=== PATIENT | female | born 1950 | race Caucasian/White ===

== ENCOUNTER 2024-10-24 17:08 | Inpatient (IN) | payer MEDICARE ==
[~2024-10-24] VITALS: Ht 165.1 cm; Wt 63.8 kg
[2024-10-24 17:35] LABS: BASOPHILS % (AUTO) 0.5 % (0-1); EOSINOPHILS % (AUTO) 0.3 % (0-6); HEMATOCRIT 37.3 % (35.0-45.0); HEMOGLOBIN 12.7 g/dl (12.0-16.0); LYMPHOCYTES # (AUTO) 0.4 X10'3 (1.1-4.8); LYMPHOCYTES % (AUTO) 7.3 % (21-51); MEAN CORPUSCULAR HEMOGLOBIN 32.6 PG (27.0-31.0); MEAN CORPUSCULAR HGB CONC 34.1 g/dL (33.0-36.5); MEAN CORPUSCULAR VOLUME 95.4 FL (78-98); MEAN PLATELET VOLUME 8.6 FL (7.4-10.4); MONOCYTES # (AUTO) 0.1 X10'3 (0-0.9); MONOCYTES % (AUTO) 1.5 % (2-12); NEUTROPHILS # (AUTO) 5.2 X10'3 (1.8-7.7); NEUTROPHILS % (AUTO) 90.4 % (42-75); PLATELET COUNT 241 X10'3 (140-440); RED BLOOD COUNT 3.91 X10'6 (4.20-5.60); RED CELL DISTRIBUTION WIDTH 12.6 % (11.5-14.5); WHITE BLOOD COUNT 5.8 X10'3 (4.5-11.0)
[2024-10-24 17:48] LABS: ALANINE AMINOTRANSFERASE 21 U/L (12-78); ALBUMIN 3.7 G/DL (3.4-5.0); ALBUMIN/GLOBULIN RATIO 0.8 (1.1-1.5); ALKALINE PHOSPHATASE 87 IU/L (46-116); ANION GAP 10 (8-16); ASPARTATE AMINO TRANSFERASE 26 U/L (10-37); BILIRUBIN,TOTAL 0.9 MG/DL (0.1-1.0); BLOOD UREA NITROGEN 13 MG/DL (7-18); BUN/CREATININE RATIO 19.7 (10.0-20.0); CALCIUM 9.6 MG/DL (8.5-10.1); CHLORIDE 96 MMOL/L (99-107); CREATININE 0.66 MG/DL (0.40-0.90); GLUCOSE 135 MG/DL (70-104); POTASSIUM 3.9 MMOL/L (3.5-5.1); SODIUM 134 MMOL/L (135-145); TOTAL CARBON DIOXIDE 28.5 MMOL/L (24-32); TOTAL PROTEIN 8.3 G/DL (6.4-8.2); eCRCL 68 ML/MIN; eGFR 88 ML/MIN
[2024-10-24 17:55] LABS: PRO BRAIN NATRIURETIC PEPTIDE 7960 PG/ML (0-125)
[2024-10-24 18:45] LABS: APTT 29 SECONDS (22-32); INR 1.1 INR; PROTHROMBIN TIME 11.7 SECONDS (9.0-12.0)
[2024-10-24] MEDS ORDERED: heparin 10,000 units/1 ML INJ IV ONE (20:35)
[2024-10-24] MEDS: heparin 10,000 units/1 ML INJ IV ONE (21:36)
[2024-10-24] MEDS: heparin 25,000 UNIT/250ml bag 250 ML IV PRN (21:37)
[2024-10-24] MEDS: MESSAGE TO NURSING IV ONE (21:39)
[2024-10-24] MEDS ORDERED: magnesium sulf-water 4G/100mL 100 ML IV PRN (22:00)
[2024-10-24] MEDS ORDERED: magnesium hydroxide 30ml (MOM) UD suspension PO PRN (22:00)
[2024-10-24] MEDS ORDERED: docusate sod 100mg capsule PO PRN (22:00)
[2024-10-24] MEDS ORDERED: morphine 2 MG/ML inj. syringe IV PRN (22:00)
[2024-10-24] MEDS ORDERED: acetaminophen 325mg tablet PO PRN (22:00)
[2024-10-24] MEDS ORDERED: magnesium sulf-water 2g/50mL 50 ML IV PRN (22:00)
[2024-10-24] MEDS ORDERED: mag hydrox/Alum hydrox/simeth 30ml oral suspension PO PRN (22:00)
[2024-10-24] MEDS ORDERED: magnesium Cl slow-release 64mg tablet PO PRN (22:00)
[2024-10-24] MEDS ORDERED: potassium Cl 40MEQ/1/2NS 520ml 520 ML IV PRN (22:00)
[2024-10-24] MEDS ORDERED: ondansetron/PF 4mg/2ml inj IV PRN (22:00)
[2024-10-24] MEDS: PERFLUTREN PROTEIN-A MICROSPHR (Optison) 0.22 MG/ML 3ML VIAL IV ONE (22:04)
[2024-10-24] MEDS ORDERED: haloperidol 5mg tablet PO PRN (22:20)
[2024-10-24] MEDS ORDERED: haloperidol lactate 5mg/ml inj IM PRN ×2 (22:20)
[2024-10-24] MEDS ORDERED: LORazepam 1 MG tablet PO PRN (22:20)
[2024-10-24 22:25] LABS: HEMOGLOBIN A1C 5.1 % (4.5-6.2)
[2024-10-24] MEDS ORDERED: LABE100T8 PO (22:26)
[2024-10-24] MEDS ORDERED: TIOT18CA3 INH (22:26)
[2024-10-24] MEDS ORDERED: OMEP20CA16 PO (22:26)
[2024-10-24] MEDS ORDERED: ALEN70TA60 PO (22:26)
[2024-10-24] MEDS ORDERED: HYDR50TA46 PO (22:26)
[2024-10-24] MEDS ORDERED: FLUT1BLS3 INH (22:26)
[2024-10-24] MEDS ORDERED: BISA-155 PO (22:26)
[2024-10-24] MEDS ORDERED: ATOR20TA PO (22:26)
[2024-10-24] MEDS ORDERED: VIT1TABL50 PO (22:26)
[2024-10-24] MEDS ORDERED: IPRA3AMP31 IH (22:26)
[2024-10-24] MEDS ORDERED: GABA-1405 PO (22:26)
[2024-10-24 22:33] LABS: LIPASE 28 U/L (16-77)
[2024-10-24] MEDS: thiamine 100mg/ml 2ml inj. IV SCH (22:40)
[2024-10-24] MEDS: pantoprazole 40mg Tablet.DR PO SCH (22:40)
[2024-10-24] MEDS: folic acid 1mg/0.2ml inj IV SCH (22:48)
[2024-10-24 23:40] VITALS: BP 147/95; PULSE 98; RESP 19; TEMP 97.4; O2SAT 96
[2024-10-25] VITALS (9 sets, daily range): BP systolic 126–160; BP diastolic 82–97; PULSE 84–104; RESP 16–21; TEMP 97.4–98.1; O2SAT 88–98
[2024-10-25 03:41] LABS: EOSINOPHILS % (AUTO) 0 % (0-6); HEMOGLOBIN 12.6 g/dl (12.0-16.0); MEAN CORPUSCULAR HGB CONC 33.7 g/dL (33.0-36.5); MONOCYTES # (AUTO) 0.2 X10'3 (0-0.9); NEUTROPHILS % (AUTO) 86.6 % (42-75)
[2024-10-25 03:42] LABS: BASOPHILS % (AUTO) 0.2 % (0-1); HEMATOCRIT 37.2 % (35.0-45.0); LYMPHOCYTES # (AUTO) 0.6 X10'3 (1.1-4.8); LYMPHOCYTES % (AUTO) 10.2 % (21-51); MEAN CORPUSCULAR HEMOGLOBIN 32.5 PG (27.0-31.0); MEAN CORPUSCULAR VOLUME 96.4 FL (78-98); MEAN PLATELET VOLUME 8.7 FL (7.4-10.4); NEUTROPHILS # (AUTO) 4.8 X10'3 (1.8-7.7); PLATELET COUNT 237 X10'3 (140-440); RED BLOOD COUNT 3.87 X10'6 (4.20-5.60); RED CELL DISTRIBUTION WIDTH 12.6 % (11.5-14.5); WHITE BLOOD COUNT 5.5 X10'3 (4.5-11.0)
[2024-10-25 03:54] LABS: INR 1.1 INR; PROTHROMBIN TIME 11.5 SECONDS (9.0-12.0)
[2024-10-25 03:59] LABS: ALANINE AMINOTRANSFERASE 22 U/L (12-78); ALBUMIN 3.5 G/DL (3.4-5.0); ALBUMIN/GLOBULIN RATIO 0.8 (1.1-1.5); ALKALINE PHOSPHATASE 81 IU/L (46-116); AMYLASE 41 U/L (25-115); ANION GAP 11 (8-16); ASPARTATE AMINO TRANSFERASE 20 U/L (10-37); BILIRUBIN,TOTAL 0.6 MG/DL (0.1-1.0); BLOOD UREA NITROGEN 19 MG/DL (7-18); BUN/CREATININE RATIO 23.8 (10.0-20.0); CALCIUM 9.3 MG/DL (8.5-10.1); CHLORIDE 95 MMOL/L (99-107); CHOL/HDL RATIO 1.8 (0.00-4.99); CHOLESTEROL 166 MG/DL (0-200); GLUCOSE 136 MG/DL (70-104); HDL CHOLESTEROL 90 MG/DL (35-60); LDL CHOLESTEROL 63 MG/DL (50-100); LIPASE 27 U/L (16-77); MAGNESIUM 1.6 MG/DL (1.5-2.4); PHOSPHORUS 5.3 MG/DL (2.3-4.5); POTASSIUM 3.9 MMOL/L (3.5-5.1); SODIUM 136 MMOL/L (135-145); TOTAL CARBON DIOXIDE 30.3 MMOL/L (24-32); TOTAL PROTEIN 8.1 G/DL (6.4-8.2); TRIGLYCERIDES 20 MG/DL (20-135); eCRCL 57 ML/MIN; eGFR 71 ML/MIN
[2024-10-25] MEDS: heparin 10,000 units/1 ML INJ IV PRN (04:31)
[2024-10-25] MEDS: MESSAGE TO NURSING IV ONE ×2 (04:46→12:25)
[2024-10-25] MEDS: K and/or MAG REPLACEMENT MC SCH (07:29)
[2024-10-25] MEDS: multivitamins, therapeutics tablet PO SCH (09:17)
[2024-10-25] MEDS ORDERED: metoprolol tartrate 1mg/ml inj IV PRN (11:35)
[2024-10-25] MEDS ORDERED: aminophylline 500mg/20ml vial IV PRN (11:35)
[2024-10-25] MEDS ORDERED: regadenoson 0.4mg/5ml syringe IV PRN (11:35)
[2024-10-25] MEDS ORDERED: nitroGLYCERIN 0.4mg SUBLingual tab SL PRN (11:35)
[2024-10-25] MEDS: nicotine 21mg patch - 24 hr TD ONE (11:54)
[2024-10-25] MEDS: PERFLUTREN PROTEIN-A MICROSPHR (Optison) 0.22 MG/ML 3ML VIAL IV ONE (12:20)
[2024-10-25] MEDS: furosemide 20 MG/2 ML vial IV ONE (13:21)
[2024-10-25] MEDS ORDERED: LIDOcaine 1% (10mg/ml) 2ml vial ONE (16:00)
[2024-10-25] MEDS ORDERED: fentaNYL/PF 50MCG/1 ML 2ML syringe ONE (16:01)
[2024-10-25] MEDS ORDERED: iohexol 350 MG/ML 50ML vial IV ONE (16:01)
[2024-10-25] MEDS ORDERED: iohexol 350MG/ML 100ml bottle IV ONE ×3 (16:01→17:36)
[2024-10-25] MEDS ORDERED: midazolam 1 mg/ML 2ml injection ONE (16:01)
[2024-10-25] MEDS ORDERED: heparin 1,000unit/ml 10ml vial 10 ML ONE ×2 (16:01→17:15)
[2024-10-25] MEDS ORDERED: verapamil 2.5 mg/ml inj IV ONE (16:01)
[2024-10-25] MEDS ORDERED: nitroGLYCERIN 500mcg/5mL D5W 5 ML IV ONE ×2 (16:02→17:59)
[2024-10-25] MEDS ORDERED: heparin 1,000 UNITS/NS 500ml 500 ML ONE (17:43)
[2024-10-25 18:13] LABS: ISTAT HGB ART 12.6 g/dl (12.0-16.0); ISTAT Hct ART 37 %PCV (35-45); ISTAT O2 SATURATION ARTERIAL 96 % (95-98); ISTAT SOURCE ART
[2024-10-25] MEDS ORDERED: clopidogrel 300mg tablet ONE (18:17)
[2024-10-25] MEDS ORDERED: aspirin 325mg tablet ONE (18:21)
[2024-10-25] MEDS ORDERED: atorvastatin 20mg tablet PO SCH (20:00)
[2024-10-25] MEDS: carvedilol 6.25mg tablet PO SCH (20:17)
[2024-10-25] MEDS: atorvastatin 20mg tablet PO SCH (20:17)
[2024-10-26] MEDS: morphine 2 MG/ML inj. syringe IV PRN (04:45)
[2024-10-26 06:00] VITALS: BP 132/83; PULSE 74; RESP 19; TEMP 97.6; O2SAT 97
[2024-10-26 06:45] LABS: BASOPHILS # (AUTO) 0.1 X10'3 (0-0.2); BASOPHILS % (AUTO) 0.8 % (0-1); EOSINOPHILS # (AUTO) 0.1 X10'3 (0-0.9); EOSINOPHILS % (AUTO) 1.1 % (0-6); HEMATOCRIT 35.7 % (35.0-45.0); MEAN CORPUSCULAR HEMOGLOBIN 32.5 PG (27.0-31.0); MEAN CORPUSCULAR HGB CONC 33.7 g/dL (33.0-36.5); MEAN CORPUSCULAR VOLUME 96.7 FL (78-98); MEAN PLATELET VOLUME 9.2 FL (7.4-10.4); MONOCYTES % (AUTO) 14.1 % (2-12); NEUTROPHILS # (AUTO) 4.9 X10'3 (1.8-7.7); PLATELET COUNT 210 X10'3 (140-440); RED BLOOD COUNT 3.69 X10'6 (4.20-5.60); RED CELL DISTRIBUTION WIDTH 12.6 % (11.5-14.5)
[2024-10-26 06:56] LABS: INR 1.1 INR; PROTHROMBIN TIME 11.5 SECONDS (9.0-12.0)
[2024-10-26 07:06] LABS: ALANINE AMINOTRANSFERASE 21 U/L (12-78); ALBUMIN 3.3 G/DL (3.4-5.0); ALBUMIN/GLOBULIN RATIO 0.8 (1.1-1.5); ALKALINE PHOSPHATASE 69 IU/L (46-116); AMYLASE 58 U/L (25-115); ANION GAP 7 (8-16); ASPARTATE AMINO TRANSFERASE 24 U/L (10-37); BILIRUBIN,TOTAL 0.6 MG/DL (0.1-1.0); BLOOD UREA NITROGEN 20 MG/DL (7-18); BUN/CREATININE RATIO 24.1 (10.0-20.0); CALCIUM 8.4 MG/DL (8.5-10.1); CHLORIDE 98 MMOL/L (99-107); CREATININE 0.83 MG/DL (0.40-0.90); GLUCOSE 89 MG/DL (70-104); LIPASE 41 U/L (16-77); MAGNESIUM 1.7 MG/DL (1.5-2.4); PHOSPHORUS 3.5 MG/DL (2.3-4.5); POTASSIUM 3.2 MMOL/L (3.5-5.1); SODIUM 139 MMOL/L (135-145); TOTAL CARBON DIOXIDE 33.8 MMOL/L (24-32); TOTAL PROTEIN 7.3 G/DL (6.4-8.2); eCRCL 55 ML/MIN; eGFR 68 ML/MIN
[2024-10-26 07:45] LABS: ISTAT HGB MIX 12.6 g/dl (12.0-16.0); ISTAT Hct MIX 37 %PCV (35-45); ISTAT O2 SATURATION MIX VENOUS 64 % (60-80); ISTAT SOURCE VEN
[2024-10-26] MEDS ORDERED: lisinopril 10 MG tablet PO SCH (08:00)
[2024-10-26] MEDS ORDERED: aspirin 81mg, enteric-coated 1 TAB TABLET.DR PO SCH ×2 (08:00)
[2024-10-26] MEDS ORDERED: clopidogrel 75mg tablet PO SCH (08:00)
[2024-10-26] MEDS: nicotine 21mg patch - 24 hr TD SCH (08:00)
[2024-10-26] MEDS: aspirin 81mg, enteric-coated 1 TAB TABLET.DR PO SCH (08:32)
[2024-10-26] MEDS: clopidogrel 75mg tablet PO SCH (08:33)
[2024-10-26 08:39] LABS: PRO BRAIN NATRIURETIC PEPTIDE 5406 PG/ML (0-125)
[2024-10-26 08:55] VITALS: RESP 19; O2SAT 97
[2024-10-26] MEDS ORDERED: ASPI-1071 PO (10:39)
[2024-10-26] MEDS ORDERED: LOSA25TA41 PO (10:39)
[2024-10-26] MEDS ORDERED: CARV6.253 PO (10:39)
[2024-10-26] MEDS ORDERED: CLOP75TA34 PO (10:39)
[2024-10-26 11:00] VITALS: BP 135/81; PULSE 83; RESP 19; TEMP 97.8; O2SAT 96
[2024-10-26 11:55] VITALS: BP_SYST 135; PULSE 83
[2024-10-26] MEDS: losartan 25mg tablet PO ONE (11:55)
[2024-10-26] MEDS: potassium Cl 20 mEq SR tablet PO PRN ×2 (11:56→13:43)
[2024-10-26] MEDS: potassium Cl 20 mEq SR tablet PO STA (12:10)
[2024-10-26] MEDS ORDERED: ATOR20TA66 PO (12:15)
[2024-10-27] MEDS ORDERED: losartan 25mg tablet PO SCH (08:00)
[2024-10-28] MEDS ORDERED: thiamine 100mg tablet PO SCH (08:00)
[2024-10-29] MEDS ORDERED: folic acid 1mg tablet PO SCH (08:00)
== END 2024-10-26 14:48 | disposition home or self-care (01) | DRG 321 ==
LOC: ER 17:09 → ED HOLD 20:36 → PCU 3S 23:25
PROVIDERS: ADMIT Internal Medicine; ATTEND Nurse Practitioner Family
PROC: 027034Z Dilation of Coronary Artery, One Artery with Drug-eluting Intraluminal Device, Percutaneous Approach (ICD-10-PCS; principal; 2024-10-25)
PROC: 4A023N8 Measurement of Cardiac Sampling and Pressure, Bilateral, Percutaneous Approach (ICD-10-PCS; 2024-10-25)
PROC: B2111ZZ Fluoroscopy of Multiple Coronary Arteries using Low Osmolar Contrast (ICD-10-PCS; 2024-10-25)
PROC: B2151ZZ Fluoroscopy of Left Heart using Low Osmolar Contrast (ICD-10-PCS; 2024-10-25)
DX: I21.4 Non-ST elevation (NSTEMI) myocardial infarction (principal); I50.33 Acute on chronic diastolic (congestive) heart failure; E87.1 Hypo-osmolality and hyponatremia; M48.54XA Collapsed vertebra, not elsewhere classified, thoracic region, initial encounter for fracture; I71.9 Aortic aneurysm of unspecified site, without rupture; Z20.822 Contact with and (suspected) exposure to COVID-19; E78.00 Pure hypercholesterolemia, unspecified; K21.9 Gastro-esophageal reflux disease without esophagitis; E87.6 Hypokalemia; F10.20 Alcohol dependence, uncomplicated; E03.9 Hypothyroidism, unspecified; I25.110 Atherosclerotic heart disease of native coronary artery with unstable angina pectoris; J98.4 Other disorders of lung; J44.9 Chronic obstructive pulmonary disease, unspecified; I11.0 Hypertensive heart disease with heart failure; Z88.8 Allergy status to other drugs, medicaments and biological substances; Z79.899 Other long term (current) drug therapy; Z90.710 Acquired absence of both cervix and uterus; Z90.49 Acquired absence of other specified parts of digestive tract; Z87.891 Personal history of nicotine dependence; Z87.11 Personal history of peptic ulcer disease
CPT/HCPCS: 36415; 71045; 74176; 76700; 76937; 80053; 80061; 80320; 82150; 82803; 83036; 83605; 83690; 83735; 83880; 84100; 84484; 85014; 85025; 85347; 85610; 85730; 87081; 87502; 87503; 87811; 92920; 93005; 93306; 93460; 96365; 96376; 97161; 97530; 99152; 99153; 99291; A4620; A6258; C1725; C1751; C1769; C1874; C1894; C9600; G0378; J1644; J1940; J2003; J2250; J2270; J3010; J3411; J3490; J7030; Q9967